=== PATIENT | female | born 1955 | race Caucasian/White ===

== ENCOUNTER 2016-06-09 08:04 | Inpatient (IN) | payer BC ==
[2016-05-13 08:39] VITALS: BMI 23.0
--- NOTE | 2016-05-13 09:04 | PAT Medication Instructions ---
Service Date May 13, 2016. Current Home Medication List Calcium/Vitamin D (Os-Mikal 500 Plus D), 2 TAB PO QAM Diclofenac (Voltaren), 75 MG PO BID Lisinopril (Zestril), 10 MG PO QAM Multivitamins/Minerals (Mvi With Minerals), 1 TAB PO QAM Tramadol (Ultram), 50 MG PO Q4H PRN for Pain [Fiber Gummies], 2 TAB PO BID Medication Instructions For Your Scheduled Surgery - Hold the following medications 7 days prior to surgery per surgeon instructions: Diclofenac (Voltaren), 75 MG PO BID - Hold the following medications the morning of surgery: Fiber Gummies 2 TAB PO BID Lisinopril (Zestril), 10 MG PO QAM Multivitamins/Minerals (Mvi With Minerals), 1 TAB PO QAM Calcium/Vitamin D (Os-Mikal 500 Plus D), 2 TAB PO QAM - Take the following medications the morning of surgery with a sip of water: Tramadol (Ultram), 50 MG PO Q4H PRN for Pain (can take up to four hours prior to surgery if needed) - Take the following medications as scheduled the night before surgery: Tramadol (Ultram), 50 MG PO Q4H PRN for Pain Fiber Gummies 2 TAB PO BID If you have any questions please call us at [phone] or [phone] ( [place]) or [phone]
[2016-05-13 10:02] LABS: BASO % 0.5 %; BASO ABS # 0.03 K/uL (0-0.2); COMPLETE YES; EOS % 3.1 %; HEMATOCRIT 38.4 % (37-47); IG% 0.2 %; LYMPH ABS # 1.12 K/uL (1.2-3.4); MEAN CELL VOLUME 92.8 fL (80-100); MEAN CORPUSCULAR HEMOGLOBIN 30.7 pg (25-34); MEAN CORPUSCULAR HGB CONC 33.1 g/dl (32-36); MONO % 6.5 %; NEUT % 70.7 %; PLATELET COUNT 233 K/uL (130-400); RED BLOOD COUNT 4.14 M/uL (4.2-5.4); WHITE BLOOD COUNT 5.89 K/uL (4.8-10.8)
--- NOTE | 2016-05-13 10:13 | DIAGNOSTIC IMAGING REPORT ---
TWO VIEW CHEST CLINICAL HISTORY: Preoperative examination. FINDINGS: PA and lateral chest radiographs are obtained. No prior studies are available for comparison at the time of dictation. The cardiomediastinal silhouette is unremarkable. The lungs and pleural spaces are clear. There is no pneumothorax. The skeletal structures are osteopenic. There is moderate S-shaped thoracolumbar scoliosis with associated spondylosis. IMPRESSION: 1. No active disease in the chest. 2. Moderate S-shaped thoracolumbar scoliosis. Electronically signed by: Jon Francisco M.D. 05/13/2016 10:12 AM Dictated Date/Time: 05/13/2016 10:11 AM
[2016-05-13 10:14] LABS: PROTHROMBIN TIME (PATIENT) 10.7 SECONDS (9.0-12.0)
[2016-05-13 10:26] LABS: BUN/CREATININE RATIO 21.6 (10-20); CALCIUM 8.7 mg/dl (8.5-10.1); CREATININE 0.82 mg/dl (0.60-1.20); POTASSIUM 4.4 mmol/L (3.5-5.1)
--- NOTE | 2016-06-06 11:09 | HISTORY & PHYSICAL EXAMINATION ---
DATE OF ADMISSION: 06/09/2016 CHIEF COMPLAINT: Left hip pain. 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 She has a several year history of increasing left hip pain and discomfort that has gotten worse over the past year. She takes anti-inflammatories and even tramadol, in order to try and manage this. Become less manageable over time. She describes groin and thigh pain. The more she walks, the more it hurts. She has difficulty putting her shoes and socks on. She would now like to pursue a surgical treatment. PAST MEDICAL HISTORY: 1. Hypertension. 2. Arthritis. PAST SURGICAL HISTORY: 1. Hysterectomy. 2. Needle biopsy of the breast. ALLERGIES: None. CURRENT MEDICINES: 1. Lisinopril 10 mg a day. 2. Multivitamin with calcium twice a day. 3. Fiber supplement. 4. Diclofenac 75 mg twice a day. 5. Tramadol 50 mg every 4 hours. SOCIAL HISTORY: A 61-year-old female. The patient works in occupational therapy. She is . Does not smoke, 3-4 drinks per week. FAMILY HISTORY: Noncontributory. REVIEW OF SYSTEMS: Negative for diabetes, neurologic problems, vascular problem, bleeding disorders. No chest pain or shortness of breath. No history of DVT or PE. No bleeding problems. PHYSICAL EXAMINATION: GENERAL: Reveals a pleasant, middle-aged female. She looks to be in excellent health. HEENT: Benign. NECK: Supple. No lymphadenopathy. LUNGS: Clear to auscultation. HEART: Regular rate and rhythm. ABDOMEN: Soft, nontender, nondistended. EXTREMITIES: Grossly neurovascularly intact except as follows: Examination of left hip and leg reveals the patient walks with an antalgic gait. Leg lengths clinically appear pretty equal. She has limited hip motion with pain with any type of hip internal rotation. Negative straight leg raise. She is neurologically intact. X-RAYS: X-rays of the left hip revealed advanced left hip DJD. Had a fairly valgus femoral neck shaft angle. Bone density looks good. She has cystic changes in the femoral head and acetabulum. 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 She has failed conservative care and would like her left hip replaced. PLAN: We are going to take her to the operating room for a left total hip replacement. The risks and benefits of this procedure were explained to the patient including but not limited to DVT, PE, , infection, neurological injury, vascular injury, bleeding problem, pain, limited range of motion, stiffness, failure to relieve her symptoms, incomplete relief of symptoms, fracture, leg length inequality, nerve palsy, need for blood transfusion, etc. The patient understands and desires to proceed. Informed consent was obtained. We really encourage her to back off on her tramadol during the perioperative period and she knows to stop her diclofenac 10 days preop and hold the lisinopril the morning of surgery. As far as discharge plans, she is planning on doing her own therapy. She is hoping to be discharged to home. I will see her back at 2 weeks postop. DILLAN
[~2016-06-09] VITALS: Ht 165.1 cm; Wt 62.7 kg
[2016-06-09] VITALS (15 sets, daily range): BP systolic 92–129; BP diastolic 60–83; PULSE 73–82; TEMP 36.4–36.8; O2SAT 18–100; Ht 165.1 cm; Wt 62.7 kg
[~2016-06-09 08:04] MED LIST: ACETAMINOPHEN 500 MG TAB PO SCH; BUPIVACAINE 0.5 % 5 MG/1 ML PF 10ML VIAL ONE; CALC500C70 PO; CEFAZOLIN 2000 MG/60 ML D5W 60 ML IV SCH; DC INTRASPINAL MORPHINE ONE; DICL-201 PO; FAMOTIDINE 20 MG TAB PO SCH; FIBER GUMMIES PO; GABAPENTIN 300 MG CAP PO SCH; LACTATED RINGER'S 1000ML 1,000 ML IV SCH; LACTATED RINGER'S 1000ML 500 ML IV ONE; LACTATED RINGER'S 1000ML IV SCH; LISI-461 PO; METOCLOPRAMIDE HCL 10 MG TAB PO SCH; MULT-513 PO; SCOPOLAMINE 1.5 MG TDSY TD SCH; TRAM-10 PO; TRANEXAMIC ACID INJ 1,000 MG in SODIUM CHLORIDE 0.9% 100ML 100 ML IV SCH
--- NOTE | 2016-06-09 09:26 | History & Physical Bridge Note ---
H&P Re-Evaluation Bridge Note: I have examined the patient, reviewed the History & Physical and in the interval since the performance of the History & Physical I have noted the following changes of clinical significance: No changes noted
[2016-06-09] MEDS ORDERED: MIDAZOLAM HCL 1 MG/ML 2ML VIAL ONE ×2 (09:59)
[2016-06-09] MEDS ORDERED: FENTANYL CITRATE INJ 50 MCG/1 ML 2 ML VIAL ONE (09:59)
[2016-06-09] MEDS ORDERED: MoRPHine SULFATE PF 1 MG/ML 10 ML AMP/VIAL ONE (10:37)
[2016-06-09] MEDS ORDERED: LACTATED RINGER'S 1000ML 1,000 ML IV PRN (10:49)
[2016-06-09] MEDS ORDERED: ONDANSETRON INJ 2 MG/ML 2 ML VIAL IV PRN ×2 (11:00→11:30)
[2016-06-09] MEDS ORDERED: FENTANYL CITRATE INJ 50 MCG/1 ML 2 ML VIAL IV PRN (11:00)
[2016-06-09] MEDS ORDERED: BUPIVACAINE/EPINEPHRINE 0.5% MPF 1:200,000 30 ML VIAL ONE (11:16)
[2016-06-09] MEDS ORDERED: BACITRACIN 50000 UNIT VIAL ONE (11:17)
[2016-06-09] MEDS ORDERED: SODIUM CHLORIDE 0.9% 1000ML 1,000 ML IV PRN (11:29)
[2016-06-09] MEDS ORDERED: NALOXONE HCL INJ 0.08 MG in SYRINGE 1.8 ML IV PRN (11:29)
[2016-06-09] MEDS ORDERED: DiphenhydrAMINE HCL 50 MG/ML VIAL IV PRN (11:30)
[2016-06-09] MEDS ORDERED: MoRPHine SULFATE PF 1 MG/ML 10 ML AMP/VIAL EPI PRN (11:30)
[2016-06-09] MEDS ORDERED: MEPERIDINE HCL 25 MG/ML CARP IV PRN (11:30)
[2016-06-09] MEDS ORDERED: NALOXONE HCL 0.4 MG/1 ML VIAL/CARP IV PRN (11:30)
[2016-06-09] MEDS ORDERED: NO NARCOTICS OR SEDATIVES SCH (11:30)
[2016-06-09] MEDS ORDERED: NALBUPHINE HCL INJ 10 MG/ML AMP IV PRN (11:30)
[2016-06-09] MEDS ORDERED: MoRPHine SULFATE 2 MG/ML CARP IV PRN (11:30)
[2016-06-09] MEDS ORDERED: PROMETHAZINE HCL INJ 25 MG in SODIUM CHLORIDE 0.9% 50ML 50 ML IV PRN (11:30)
[2016-06-09] MEDS ORDERED: EpHEDrine SULFATE 50MG/5ML SYR ONE (12:12)
[2016-06-09] MEDS ORDERED: PHENYLEPHRINE 100MCG/ML 5ML SYR ONE (12:12)
[2016-06-09] MEDS ORDERED: PHENYLEPHRINE HCL INJ 10 MG/ML VIAL ONE (13:03)
--- NOTE | 2016-06-09 13:11 | [facility] Post Operative Brief Note ---
Immediate Operative Summary Operative Date Jun 09, 2016. Pre-Operative Diagnosis Left Hip Advanced Degenerative Joint Disease Post-Operative Diagnosis Left Hip Advanced Degenerative Joint Disease Procedure(s) Performed Left Total Hip Arthroplasty--Uncemented Surgeon Dr. Maravilla Bandage Maker Surgeon(s) JOSE ANGEL Chino Estimated Blood Loss 200 ml Findings Left Hip DJD Fluids (cc crystalloids) 1600 cc Specimens A. Left Femoral Head Drains None Anesthesia Spinal Complication(s) None Disposition Recovery Room / PACU
[2016-06-09] MEDS ORDERED: BISACODYL 10 MG SUPP PR PRN (13:15)
[2016-06-09] MEDS ORDERED: SILVER SULFADIAZINE 1% CR 50 GM JAR EXT PRN (13:15)
[2016-06-09] MEDS ORDERED: ALUMINUM/MAGNESIUM/SIMETH (MAALOX MAX) 30 ML UDC PO PRN (13:15)
[2016-06-09] MEDS ORDERED: MAGNESIUM HYDROXIDE SUSP 30 ML UDC PO PRN (13:15)
--- NOTE | 2016-06-09 13:55 | DIAGNOSTIC IMAGING REPORT ---
LEFT PELVIS/UNILATERAL HIP 1 VIEW CLINICAL HISTORY: Left hip arthroplasty. COMPARISON: Pelvis and hip radiographs September 27, 2015. FINDINGS: Alignment of the total left hip arthroplasty is anatomic. There is no periprosthetic fracture or unexpected radiopaque foreign body. There is an acetabular screw and skin berna. IMPRESSION: Status post total left hip arthroplasty. No periprosthetic fracture or unexpected radiopaque foreign body. Electronically signed by: London Yo M.D. 06/09/2016 1:53 PM Dictated Date/Time: 06/09/2016 1:52 PM
--- NOTE | 2016-06-09 13:57 | OPERATIVE REPORT ---
DATE OF OPERATION: 06/09/2016 SURGEON: Daniel Maravilla MD CASH POSTER: JOSE ANGEL Hester PREOPERATIVE DIAGNOSIS: Left hip degenerative joint disease. POSTOPERATIVE DIAGNOSIS: Left hip degenerative joint disease, likely related to underlying hip dysplasia. PROCEDURE: Left ceramic on highly crosslinked polyethylene uncemented total hip arthroplasty. COMPLICATIONS: None. ESTIMATED BLOOD LOSS: 200 mL. FLUID REPLACEMENT: 1600 mL crystalloid fluid replacement. ANESTHESIA: Spinal. DRAINS: None. SPECIMENS: Left femoral head sent for pathology. 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 She has failed all conservative care. X-rays revealed advanced left hip DJD. The patient elected to proceed with surgical treatment. OPERATIVE FINDINGS: Operative findings revealed advanced left hip DJD. She had erosion of the femoral head as well as portions of the acetabulum. She had pretty fairly significant synovitis. She did have retroversion of her femoral neck. She had moderate-size joint effusion. Despite not having much offset of her femoral neck, she had a fairly loose ligaments and laxity to her hip. OPERATIVE IMPLANTS: Operative implants consisted of: 1. A Biomet G7 size 52-mm acetabular shell. 2. A 6.5 cancellous acetabular screws, one at 35 mm length and one at 15 mm length. 3. An apex hole eliminator. 4. A +5 offset 52 mm outer diameter and 32 mm inner diameter highly cross-linked polyethylene liner. 5. A DePuy size 12 small stature AML femoral stem. 6. A +5/32 mm ceramic articular ball. OPERATIVE PROCEDURE: The patient was taken to the operating room, identified and placed on the operating table in supine position. All contact areas were appropriately padded. IV antibiotics were provided by the anesthesia team. A spinal anesthetic had been implemented in the holding area. Isbell catheter was placed in sterile fashion. The patient was then placed in the right lateral decubitus position. An axillary roll was placed. Stulberg hip positioner was used for positioning. Left hip and leg were then prepped and draped in usual sterile fashion. A posterolateral approach to the left hip was then performed through a curvilinear incision centered over the greater trochanter. Sharp dissection was carried out through the subcutaneous tissues down to the level of the IT band and gluteal fascia. The IT band and gluteal fascia were incised longitudinally in line with skin incision. The underlying greater trochanteric bursa was excised. The piriformis and external rotators were tagged and taken off the posterior aspect of the femur. Great care was taken throughout the procedure to protect the sciatic nerve at all times. A posterior capsulotomy was then performed. A large flap was kept for later repair. Hip was internally rotated and dislocated. Femoral neck osteotomy cut was made with the final cut 16 mm above the lesser trochanter. Femoral head was removed and sent for pathology. The femur was retracted anteriorly. Attention was then drawn to the acetabulum. The acetabulum labrum was excised. The pulvinar fat was excised. Sequential reaming of the acetabulum was then performed beginning with a size 45 and progressing up to 51. A 52-mm Biomet G7 acetabular shell was then placed in about 20-25 degrees of anteversion and 40 degrees of lateral opening. I did try to put it in a little more anteversion, as I felt that her femoral neck look retroverted. A trial liner was placed. Attention was then drawn to the femur. The proximal femur was entered with cookie cutter followed by canal finder and lateralizing reamer. Sequential reaming of the femur was then performed beginning with a size 9 and progressing up to an 11.5. We were just getting some chatter at 11.5. I did not feel like her proximal segment could fit much larger implant proximally, so we broached beginning with a size 10.5 and progressed up to a 12 small broach. We had removed all the cancellous bone proximally, so we elected to use this. The calcar reamer was used to smoothen off the calcar. I then trialed the hip. In addition, the soft tissues were extremely lax. Therefore, I did place a +4 offset liner, which improved the laxity to some degree. It was still a little bit loose, but the hip was fully stable in full extension and external rotation and flexion to 90 degrees and internal rotation to about [address] I elected to place these implants. All trial implants were removed. An apex hole eliminator was placed. A highly cross-linked polyethylene liner with a +5 offset was placed. A 12 small stature AML femoral stem was placed. We got about 3 cm of scratch fit. I believe that the most of the fit was proximal in the metaphyseal region. I then trialed the hip and I elected to use a +5 ball. There was a bit more stable with the +9, but I was concerned that I would lengthen her leg. As her leg lengths were pretty equal to start out and if anything the left a little long. The +5/32-mm ceramic articular ball was placed. Hip was located and once again found to be stable. The soft tissue tension was still a little bit on the lax side, but I elected to accept this. Attention was then drawn toward closing. The wound was irrigated with copious amounts of pulsatile lavage solution. I did inject locally with 60 mL of 0.5% Marcaine with epinephrine. The posterior capsule and external rotators were repaired through drill holes in the posterior trochanter with #2 Ti-Cron suture. The IT band and gluteal fascia were then closed with #1 PDS suture in running fashion. The subcutaneous tissues were then closed in 2 layers with a deep layer in #1 Vicryl suture and subcutaneous tissues with 2-0 Dexon suture in a buried interrupted fashion. Skin was closed skin berna. Leg was then cleaned and dried and a sterile dressing of Xeroform, 4 x 4, ABD pad and foam tape was applied. The patient then transferred to the recovery room in stable condition. The patient tolerated the procedure well with no complications. All needle and sponge counts were correct at the end of the operation. I attest to the content of the Intraoperative Record and any orders documented therein. Any exceptions are noted below. DILLAN
--- NOTE | 2016-06-09 15:22 | Anesthesiology Progress Note ---
Anesthesia Post Op Note Date & Time Jun 09, 2016 at 15:21 Vital Signs Pain Intensity: 0 Vital Signs Past 12 Hours Date Time Temp Pulse Resp B/P Pulse Ox O2 Delivery O2 Flow Rate FiO2 06/09/16 15:07 36.5 77 16 129/79 100 Nasal Cannula 3.0 06/09/16 14:15 101/61 06/09/16 14:13 78 14 100 06/09/16 14:13 77 14 06/09/16 14:10 94/61 06/09/16 14:08 80 20 06/09/16 14:08 81 20 100 06/09/16 14:05 93/66 06/09/16 14:03 80 19 06/09/16 14:03 79 19 100 06/09/16 14:00 100/61 06/09/16 13:58 79 19 100 06/09/16 13:58 78 19 06/09/16 13:55 93/64 06/09/16 13:53 77 17 100 06/09/16 13:53 77 17 06/09/16 13:50 100/63 06/09/16 13:48 79 18 100 06/09/16 13:48 78 18 06/09/16 13:47 36.8 06/09/16 13:45 106/68 06/09/16 13:43 79 17 06/09/16 13:43 79 17 100 06/09/16 13:40 104/66 06/09/16 13:38 78 22 06/09/16 13:38 77 22 100 06/09/16 13:35 104/64 06/09/16 13:33 80 15 06/09/16 13:33 79 15 100 06/09/16 13:30 102/70 06/09/16 13:28 83 14 06/09/16 13:28 83 14 100 06/09/16 13:27 81 06/09/16 13:27 80 14 100 06/09/16 13:25 98/66 06/09/16 13:22 84 11 06/09/16 13:22 85 11 100 06/09/16 13:20 99/62 06/09/16 13:17 82 14 06/09/16 13:17 82 14 100 06/09/16 13:15 97/63 06/09/16 13:13 96/62 06/09/16 13:13 36.4 103 18 96/62 100 Mask 8 06/09/16 13:12 95 11 06/09/16 13:12 95 11 100 06/09/16 09:28 36.7 82 20 127/83 99 Room Air Notes Mental Status: alert / awake / arousable, participated in evaluation Pt Amnestic to Procedure: No (recall as expected) Nausea / Vomiting: adequately controlled Pain: adequately controlled Airway Patency, RR, SpO2: stable & adequate BP & HR: stable & adequate Hydration State: stable & adequate Anesthetic Complications: no major complications apparent Pt did well.
[2016-06-09] MEDS: D5W AND 1/2NSS + 20MEQ KCL 1,000 ML IV SCH (15:45)
[2016-06-09] MEDS: CHECK SCOPOLAMINE PATCH PLACEMENT SCH (15:47)
[2016-06-09] MEDS: KETOROLAC TROMETHAMINE 30 MG/ML VIAL IV. SCH (18:13)
[2016-06-09] MEDS: FERROUS GLUCONATE 324 MG TAB PO SCH (18:13)
--- NOTE | 2016-06-09 18:37 | PROGRESS NOTE ---
DATE: 06/09/2016 SUBJECTIVE: A 61-year-old white female postop from a left total hip placement. She is doing pretty well. Not having any pain yet. She was nauseated early, but sounds better. No chest pain or shortness of breath. Not feeling dizzy or lightheaded. OBJECTIVE: VITAL SIGNS: Temperature 36.4. Vital signs stable. PHYSICAL EXAMINATION: GENERAL: Reveals a pleasant elderly female. The patient is sitting up in bed and was sleeping when I visited her this afternoon. Easily arousable. LUNGS: Clear to auscultation. HEART: Regular rate and rhythm. ABDOMEN: Soft, nontender, nondistended. EXTREMITIES: Grossly neurovascularly intact except as follows: Examination of the left lower extremity reveals the leg to be well aligned. Hip is located. She can dorsiflex and plantarflex her foot appropriately. She is neurologically intact. X-RAYS: X-rays of the left hip from recovery room reviewed. It shows left uncemented total hip arthroplasty. Components looked to be in good position. No signs of problems. ASSESSMENT: A 51-year-old white female postop from a left total hip replacement, doing well. Hips located. She is neurologically intact. Pain is controlled. PLAN: 1. DVT prophylaxis including thigh-high TEDs, SCDs, and aspirin twice a day. 2. PT/OT. Weightbearing as tolerated. Left total hip protocol. 3. IV antibiotics x24 hours. 4. Pain control, doing pretty well with current pain regimen. We will have to supplement with meds as spinal was off. 5. Disposition: She is going to be discharged to home without home health. 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 DILLAN
[2016-06-09] MEDS ORDERED: TRANEXAMIC ACID INJ 1,000 MG in SODIUM CHLORIDE 0.9% 100ML 100 ML IV ONE (20:00)
[2016-06-09] MEDS: ACETAMINOPHEN 500 MG TAB PO SCH (20:33)
[2016-06-09] MEDS: ASPIRIN 325 MG ECTAB PO SCH (20:33)
[2016-06-09] MEDS: DOCUSATE SODIUM 100 MG CAP PO SCH (20:33)
[2016-06-09] MEDS: CEFAZOLIN IV 1,000 MG in DEXTROSE 5% 50ML 50 ML IV SCH (20:33)
[2016-06-09] MEDS ORDERED: FIBER GUMMIES PO SCH (21:00)
[2016-06-10] VITALS (14 sets, daily range): BP systolic 83–115; BP diastolic 51–74; PULSE 69–85; TEMP 36.6–37; O2SAT 97–100
[2016-06-10] MEDS: CHECK SCOPOLAMINE PATCH PLACEMENT SCH ×3 (00:30→16:00)
[2016-06-10] MEDS: KETOROLAC TROMETHAMINE 30 MG/ML VIAL IV. SCH ×4 (00:33→18:29)
[2016-06-10] MEDS: D5W AND 1/2NSS + 20MEQ KCL 1,000 ML IV SCH ×2 (02:11→12:38)
[2016-06-10] MEDS: CEFAZOLIN IV 1,000 MG in DEXTROSE 5% 50ML 50 ML IV SCH (04:04)
[2016-06-10] MEDS ORDERED: OXYCODONE HCL IR 5 MG TAB (IMMEDIATE RELEASE) PO PRN (05:00)
[2016-06-10] MEDS ORDERED: METOCLOPRAMIDE HCL INJ 5 MG/ML 2 ML VIAL IV PRN (05:00)
[2016-06-10] MEDS ORDERED: TRAMADOL HCL 50 MG TAB PO PRN (05:00)
[2016-06-10] MEDS ORDERED: KETOROLAC TROMETHAMINE 30 MG/ML VIAL IV. SCH (05:00)
[2016-06-10] MEDS ORDERED: MoRPHine SULFATE 2 MG/ML CARP IV PRN (05:00)
[2016-06-10] MEDS ORDERED: ONDANSETRON INJ 2 MG/ML 2 ML VIAL IV PRN (05:00)
[2016-06-10] MEDS ORDERED: ZOLPIDEM TARTRATE 5 MG TAB PO PRN (05:00)
[2016-06-10] MEDS ORDERED: DiphenhydrAMINE HCL 50 MG/ML VIAL IV PRN (05:00)
[2016-06-10] MEDS: ACETAMINOPHEN 500 MG TAB PO SCH ×3 (05:50→21:55)
[2016-06-10 06:09] LABS: BASO % 0.3 %; BASO ABS # 0.02 K/uL (0-0.2); COMPLETE YES; EOS % 1.3 %; IG% 0.3 %; LYMPH ABS # 1.13 K/uL (1.2-3.4); MEAN CELL VOLUME 89.6 fL (80-100); MEAN CORPUSCULAR HEMOGLOBIN 29.8 pg (25-34); MEAN CORPUSCULAR HGB CONC 33.2 g/dl (32-36); MEAN PLATELET VOLUME 10.2 fL (7.4-10.4); MONO % 6.9 %; NEUT % 76.2 %; PLATELET COUNT 174 K/uL (130-400); RED BLOOD COUNT 3.46 M/uL (4.2-5.4); WHITE BLOOD COUNT 7.54 K/uL (4.8-10.8)
[2016-06-10 06:26] LABS: BUN/CREATININE RATIO 20.3 (10-20); CALCIUM 7.9 mg/dl (8.5-10.1); CREATININE 0.78 mg/dl (0.60-1.20); POTASSIUM 4.7 mmol/L (3.5-5.1)
--- NOTE | 2016-06-10 07:44 | PROGRESS NOTE ---
DATE: 06/10/2016 SUBJECTIVE: A 61-year-old white female postop day 1 from left total hip replacement. She is doing well. Not much pain at all. No chest pain or shortness of breath. Not feeling dizzy or lightheaded. She feels like she has to go to void but is having difficulty. OBJECTIVE: VITAL SIGNS: Temperature is 37.0. Vital signs stable. PHYSICAL EXAMINATION: GENERAL: Reveals a pleasant middle-aged female. The patient is sitting up in bed and looks quite comfortable. LUNGS: Clear to auscultation. HEART: Regular rate and rhythm. ABDOMEN: Soft, nontender, nondistended. EXTREMITIES: Grossly neurovascularly intact except as follows: Examination of left hip and leg reveals the dressing to be clean, dry and intact. Leg lengths are equal. Hip is located. She can dorsiflex and plantarflex her foot appropriately. Thigh is soft and supple. NEUROLOGIC: She is neurologically intact. LABORATORY DATA: Hemoglobin is 10.3, hematocrit 31.0. Electrolytes are stable. ASSESSMENT: A 61-year-old white female postop day 1 from left total hip replacement, doing pretty well. Pain is controlled. Her hip is located. She is neurologically intact. She is having a little trouble voiding and we will straight catheter her as needed. PLAN: 1. DVT prophylaxis includes thigh-high TEDs, SCDs, and aspirin twice a day. 2. PT/OT. Weightbearing as tolerated. Left total hip protocol. 3. Pain control. Doing well with current pain regimen. 4. Difficulty urinating. We will straight catheter her, but I am certain this will come back in the next 12-24 hours. 5. Disposition: She is hoping to be discharged to home. She is going to have some friends do her home health and therapy.
[2016-06-10] MEDS: CEROVITE ADV FORMULA TAB PO SCH (08:54)
[2016-06-10] MEDS: FERROUS GLUCONATE 324 MG TAB PO SCH ×3 (08:54→18:28)
[2016-06-10] MEDS: ASPIRIN 325 MG ECTAB PO SCH ×2 (08:54→20:51)
[2016-06-10] MEDS: PANTOprazole SOD 40 MG TAB PO SCH (08:55)
[2016-06-10] MEDS: MULTIVITAMIN TAB PO SCH (08:55)
[2016-06-10] MEDS: CALCIUM 600MG + VIT D 400 IU TAB PO SCH (08:56)
[2016-06-10] MEDS: DOCUSATE SODIUM 100 MG CAP PO SCH ×2 (08:56→20:51)
--- NOTE | 2016-06-10 08:58 | Anesthesiology Progress Note ---
Anesthesia Post Op Note Date & Time Jun 10, 2016 at 08:56 Vital Signs Pain Intensity: 0.0 Vital Signs Past 12 Hours Date Time Temp Pulse Resp B/P Pulse Ox O2 Delivery O2 Flow Rate FiO2 06/10/16 07:40 36.9 74 16 90/57 98 Room Air 06/10/16 06:30 16 100 06/10/16 05:49 81 95/61 06/10/16 05:30 12 100 06/10/16 04:45 76 91/58 75 86/58 06/10/16 04:30 15 99 06/10/16 03:42 74 86/53 99 Room Air 71 87/57 06/10/16 03:30 37.0 69 16 83/51 99 Room Air 74 89/56 06/10/16 03:30 16 99 06/10/16 02:30 16 99 06/10/16 01:30 14 98 06/10/16 00:30 16 97 06/10/16 00:30 Room Air 06/09/16 23:45 36.8 73 12 100/61 96 Room Air 06/09/16 23:30 12 96 06/09/16 21:30 16 98 Notes Mental Status: alert / awake / arousable, participated in evaluation Pt Amnestic to Procedure: Yes Nausea / Vomiting: adequately controlled Pain: adequately controlled Airway Patency, RR, SpO2: stable & adequate BP & HR: stable & adequate Hydration State: stable & adequate Neuraxial Anesthesia: sensory block resolved Anesthetic Complications: no major complications apparent
[2016-06-10] MEDS: TAPENTADOL ER 50 MG TABCR PO SCH ×2 (09:03→20:51)
[2016-06-10] MEDS ORDERED: OXYC-57 PO (20:42)
[2016-06-10] MEDS ORDERED: ASPEC325 PO (20:42)
[2016-06-10] MEDS ORDERED: FRRG PO (20:42)
--- NOTE | 2016-06-10 20:45 | Discharge Instructions ---
Discharge Instructions Date of Service Jun 10, 2016. Admission Reason for Admission: Left Hip Osteoarthritis, Hip Pain Discharge Discharge Diagnosis / Problem: Left Hip Replacement Discharge Goals Goal(s): Decrease discomfort, Improve function, Increase independence, Improve disease control, Therapeutic intervention Activity Recommendations Activity Limitations: per Instructions/Follow-up section (Total Hip Precautions ) Weightbearing Status: Right weightbearing . Instructions / Follow-Up Instructions / Follow-Up ACTIVITY RECOMMENDATIONS: Physical Therapy: * Aggressive physical therapy is not usually needed. You will learn to take care of yourself safely and walk. * Follow the "Hip Precautions Instructions." * In some cases, the medical social consultant at the hospital will arrange to have a therapist come to your house for the first couple of weeks to help you learn these skills. * You need to practice on your own or with the help of a family member as needed. * When you learn these skills, most of the therapy can be done on your own. Home Exercise: * You were shown a series of exercises in the hospital. Do these exercises three to four times each day including the exercises you were shown in physical therapy. Walking: * Get up and walk several times each day. For the first four weeks, try not to stand or walk for more than one hour at a time. If you do stand or walk for more than one hour, you will not hurt anything, but your leg will likely swell. * As you feel comfortable, you may change from the walker or crutches to a cane and then to independent walking. MEDICATIONS: New Medicine: * You will likely be taking one or more of these medicines: 1. Percocet - Take, as directed, when you need it, every four to six hours to control your pain. 2. Iron Sulfate - Take three times each day for the month after surgery to help you replace the blood lost during surgery. 3. Aspirin - Thins your blood to lessen the chance of forming a blood clot. * The most common side effects of pain medicine and iron are nausea and constipation. If nausea or constipation is too much of a problem or if you have any questions about your new medicines or doses, call [facility] at [phone]. We will try to help you manage these issues. VERY IMPORTANT TO READ AND REVIEW" Pain: * The immediate post-operative period after hip replacement surgery is often quite painful. * You are given a prescription for pain medicine. You should take it, as directed, when you need it, especially before physical therapy and before going to bed. Pain that interferes with sleep is very common and can last several months. * You will likely need pain medicine for the first two to four weeks. It will not stop all of the pain. The pain will lessen and as you feel better, you may change to milder pain medicine such as Tylenol. * The most common side effects of pain medicine are nausea and constipation, so don't take more than you need. SPECIAL CARE INSTRUCTIONS: TEDs/Elastic Stockings: * The white elastic stockings help limit swelling and prevent blood clots from forming in your legs. The more you wear them, the more they work. * Wear them for six weeks. Prevention of Infection: * Take antibiotics one hour before any dental cleaning, dental work, urological procedure, gastrointestinal procedure or any invasive surgery in order to prevent your new joint from getting infected. * You may get the antibiotics from the doctor performing the procedure or you may call our office at before and we will call in a prescription to the pharmacy of your choice. Things to Watch For: * Drainage from the incision site that occurs more than one week after your surgery. * Severely increased leg pain or swelling. * Increased redness at the incision site. * Fever above 102 degrees Fahrenheit. * Unusual chest pain or shortness of breath. * Unusual pain or burning with urination. Call [facility] at with any of the above problems or if you have any questions about your medicines or recovery. FOLLOW UP VISIT: Make an appointment to see your doctor for approximately two weeks after surgery for a progress check and staple removal by calling the office at . Current Hospital Diet Patient's current hospital diet: Regular Diet Discharge Diet Recommended Diet: Regular Diet Procedures Procedures Performed: Left Total Hip Arthroplasty--Uncemented Pending Studies Studies pending at discharge: no Medical Emergencies . Who to Call and When: Medical Emergencies: If at any time you feel your situation is an emergency, please call [phone] immediately. . Non-Emergent Contact Non-Emergency issues call your: Surgeon . "Provider Documentation" section prepared by Daniel Maravilla. VTE Core Measure Inpt VTE Proph given/why not?: Other Anticoagulation, T.E.D. Stockings, SCD's
[2016-06-11 00:05] VITALS: BP 111/74; PULSE 93; TEMP 36.8; O2SAT 99
[2016-06-11] MEDS: CHECK SCOPOLAMINE PATCH PLACEMENT SCH (00:20)
[2016-06-11] MEDS: KETOROLAC TROMETHAMINE 30 MG/ML VIAL IV. SCH ×3 (00:20→12:00)
[2016-06-11] MEDS: ACETAMINOPHEN 500 MG TAB PO SCH (05:37)
--- NOTE | 2016-06-11 07:37 | ORTHOPEDIC PROGRESS NOTE ---
DATE: 06/11/2016 SUBJECTIVE: Vicky is a 61-year-old female. She is now postoperative day #2 from left total hip replacement. She is doing pretty well today. Pain is controlled at about a 4/10 at times. She apparently vomited about 3:00 in the morning. No other complaints today. PHYSICAL EXAMINATION: She is alert, oriented, in no distress at this time. Vital signs have been stable. Examination of the left leg today leg is well aligned hip is located. She is able to dorsiflex, plantarflex appropriately. Thigh and calf are soft and nontender. IMPRESSION: Postop day #2 from left total hip replacement. PLAN: Continue SHAE stockings, SCDs and aspirin for DVT prophylaxis, PT, OT, weightbearing as tolerated and total hip precautions. Will plan to discharge home today. Pain is currently controlled. She is taking tramadol and Tylenol as well. She will follow up in about 2 weeks postoperatively. She was seen and examined by Dr. Maravilla today. DILLAN
[2016-06-11 07:52] VITALS: BP 113/65; PULSE 85; TEMP 37.1; O2SAT 98
[2016-06-11] MEDS: MULTIVITAMIN TAB PO SCH (08:31)
[2016-06-11] MEDS: CEROVITE ADV FORMULA TAB PO SCH (08:31)
[2016-06-11] MEDS: FERROUS GLUCONATE 324 MG TAB PO SCH ×2 (08:31→12:54)
[2016-06-11] MEDS: CALCIUM 600MG + VIT D 400 IU TAB PO SCH (08:32)
[2016-06-11] MEDS: PANTOprazole SOD 40 MG TAB PO SCH (08:32)
[2016-06-11] MEDS: TAPENTADOL ER 50 MG TABCR PO SCH (08:34)
[2016-06-11 09:41] VITALS: BP 113/65; PULSE 85; TEMP 37.1; O2SAT 98
[2016-06-11] MEDS: ASPIRIN 325 MG ECTAB PO SCH (09:42)
[2016-06-11] MEDS: DOCUSATE SODIUM 100 MG CAP PO SCH (09:42)
--- NOTE | 2016-06-17 14:42 | DISCHARGE SUMMARY ---
ADMITTING PHYSICIAN AND SURGEON: Dr. Maravilla. ADMITTING DIAGNOSIS: Left hip degenerative joint disease. SURGERY PERFORMED: Left total hip arthroplasty. SECONDARY DIAGNOSES: Hypertension and arthritis. CONSULTS: None obtained. HISTORY AND PHYSICAL EXAMINATION: Well documented in the patient's chart. HOSPITAL COURSE: The patient was admitted on 06/11/2016 underwent total hip arthroplasty, tolerated the procedure well. There were no complications. She was transferred to the PACU postoperatively and later to the orthopedic floor for further care. She was given Ancef for antibiotic prophylaxis, SHAE stockings, SCDs and aspirin for DVT prophylaxis. Hemoglobin, hematocrit and vital signs were monitored during her hospital stay and remained stable. She developed some postoperative anemia with a hemoglobin of 10.3 did not require any blood transfusions. She had one episode of emesis on her postop day #2 but there were no complications. By postoperative day #2, she was tolerating a general diet, pain was controlled with oral pain medicine. She was participating in physical therapy and had no signs or symptoms of deep vein thrombosis. On postop day #2, she was discharged home in good condition, given printed discharge instructions including prescriptions for aspirin 325 mg b.i.d., iron supplement and Percocet. Continue her home medications, continue physical therapy, weightbearing as tolerated. SHAE stockings, total hip precautions and follow up in 10-12 days or sooner if there are any problems or concerns.
== END 2016-06-11 13:59 | disposition home or self-care (01) | DRG 470 ==
LOC: ENRESERVTM → ENRESERVDT → C.ACU 08:04 → C.3E 09:15
PROVIDERS: ADMIT Orthopaedic Surgery Sports Medicine; ATTEND Orthopaedic Surgery Sports Medicine
PROC: 0SRB04A Replacement of Left Hip Joint with Ceramic on Polyethylene Synthetic Substitute, Uncemented, Open Approach (ICD-10-PCS; principal; 2016-06-09 11:20)
DX: M16.12 Unilateral primary osteoarthritis, left hip (principal); I10 Essential (primary) hypertension; M62.81 Muscle weakness (generalized); M54.10 Radiculopathy, site unspecified; M41.9 Scoliosis, unspecified; M25.452 Effusion, left hip; Z79.1 Long term (current) use of non-steroidal anti-inflammatories (NSAID); Z79.899 Other long term (current) drug therapy; Z79.891 Long term (current) use of opiate analgesic